=== PATIENT | female | born 1945 | race Caucasian/White ===

== ENCOUNTER 2016-09-07 08:20 | Inpatient (IN) | payer MEDICARE, MEDICAID ==
[~2016-09-07] VITALS: Ht 160 cm; Wt 64.4 kg
[2016-09-07] VITALS (7 sets, daily range): BP systolic 104–140; BP diastolic 47–88
[~2016-09-07 08:20] MED LIST: ALPRAZOLAM0.5 M3 PO; BUTRANS10 MCG/HR TD; CENTRUM SILVER1 EACH PO; GABAPENTIN 600600 MG PO; HYDROCODONE/IBU1 TAB PO; HYDROMORPHONE 2M2 MG PO; KEPPRA 500 MG500 MG PO; MAG-OX 400MG T400 MG PO; METHOCARBAMOL500 MG PO; MYCOSTATIN100000 U/G EX; NICOTINE PATCH;21 MG TD; NICOTINE T21 MG/24 H TD; OMEPRAZOLE20 MG PO; OXYCODONE HCL10 M1 PO; PHENERGAN 25MG.25 M1 PO; POTASSIUM CHLO10 ME3 PO; PRILOSEC20 M1 PO; PROAIR HFA0.09 MG/AC IH; PROBIOTIC FORM1 EACH PO; PROBIOTIC1 EAC5 PO; PROMETHAZINE HC25 M1 PO; VENTOLIN H0.09 MG/AC IH; XANAX 0.5MG TA0.5 MG PO; Xanax0.25 MG PO; ZOFRAN ODT4 MG PO; ZOFRAN4 MG PO; ZUPLENZ4 MG MM
--- NOTE | 2016-09-07 08:48 | Emergency Room Report ---
History of Present Illness Time Seen by MD Mcgrath Presenting Problem in Triage Pt arrived:Ambulance Stretcher Presenting Problem:REPORTS FEELING SICK TO HER STOMACH FOR SEVERAL DAYS. REPORTS WEAKNESS, VOMITING, NO FEVER. REPORTS SHE CANNOT URINATE. PT HAS COLOSTOMY RLQ. PT VERY PALE. 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 N Clinical Suspician of Infection? N Mental Status: 1 - Regular (Normal Baseline) Sepsis Risk:Low Sepsis Risk Have you (or family members/close friends) recently traveled outside the [place]? N If Yes, where/when: Have you had exposure to infectious disease within the past month? N TB? Other? Specify: Comment The patient complains of lower abdominal pain. She has chronic abdominal pain, but is currently worse. She is on a fentanyl patch and oxycodone 10 mg. She wonders whether her pain medication needs to be increased. She has also been vomiting. Her daughter states that she is currently in renal failure, she says that her kidney function on when she had outpatient labs was "6". She says that she has had decreased urine output in her urine is very strong, ammonia smelling. She is not a candidate for dialysis, feeding tube, or surgery. She has had multiple abdominal surgeries and has a colostomy. Her daughter states that she is going to soon be in hospice. ALLERGIES Coded Allergies: Penicillins (I-HIVES 08/06/16) SHELLFISH (FOOD) (I-ITCHING 08/06/16) iodine (I-HIVES 08/06/16) morphine (HEADACHE 08/06/16) Home Medications Reported Medications Nystatin (Mycostatin) 1 TISHA EX QID Omeprazole (Omeprazole 20MG) 20 MG PO BID POTASSIUM CHL (Potassium Chloride) 10 MEQ PO BID Gabapentin (Gabapentin 600MG) 600 MG PO BID Alprazolam 0.5 MG PO QHS #30 TAB Levetiracetam (Keppra 500 Mg Tablet) 750 MG PO BID MAGNESIUM OXIDE (Magnesium Oxide) 400 MG PO DAILY Multivit-Min/FA/Lycopene/Lut (Centrum Silver Tablet) 1 EACH PO DAILY Buprenorphine (Butrans) 10 MCG TD DAILY #4 OXYCODONE HCL (Oxycodone HCl) 10 MG PO PRN PRN PAIN #63 ONDANSETRON HCL (Zofran 4MG Tab) 8 MG PO DAILY Albuterol Sulfate (Proair Hfa) 1 PUFF IH Q4HP PRN BREATHING History Medical History General CAD? Yes Angina: No CA: No Hypertension? No Hyperlipidemia? No CHF? No DVT? No PE? No COPD? Yes Asthma? Yes Anemia? No GERD? Yes Gastric ulcers? No GI Bleed? No Hernia? No Thyroid Problems? No Hypothyroidism? No CVA? Yes Seizures? Yes Diabetes? No Renal Insuffiency? Yes End Stage Renal Disease? No UTI? Yes Stones? Yes BPH? No GB Disease: Yes Nephritic Syndrome? No Asplenia? No Hepatitis? No Sickle Cell Disease? No Arthritis? No Migraines? No Cataracts? No Glaucoma? No MRSA? No HIV? No TB? No Anxiety? No Depression? No Cancer? Yes Site: OVARIAN More? Yes Additional hx: DIVERTICULITIS Immunization Hx DT/Tetanus Unknown Flu 2812-8452 Pneumonia Received In Past Surgical Hx Previous Surgery?Y HYSTERECTOMY L SHOULDER NASAL SEPTUM BOWEL SURGERY BOWEL RESECTION COLOSTOMY PLACEMENT Cholecystectomy Appendectomy PORTACATH PLACED Family History Family Hx Diabetes Yes CAD Yes Hypertension Yes Hyperlipidemia No Cancer No TB No Social History Smoking Hx Smoker: Never Smoker Tobacco: No Packs/day < 1 Pack Alcohol Alcohol: No Additionial History Additional History September 04 labs reviewed. BUN was 6, creatinine was 1. Review of Systems All Other Systems Reviewed and Negative Constitutional denies fever, malaise, weakness Gastrointestinal see HPI, abdominal pain, vomiting Genitourinary see HPI. Musculoskeletal back pain (chronic), other (pain in the heels) Physical Exam Vital Signs Vital Signs Date Time Temp Pulse Resp B/P Pulse O2 O2 Flow FiO2 Ox Delivery Rate 09/07 1103 119 16 89/75 97 2 09/07 1026 118 16 71/44 98 2 09/07 1017 16 09/07 0959 128 16 75/58 96 2 09/07 0848 120 20 63/42 95 09/07 0821 98.7 96 16 117/47 91 2 General Appearance thin, pale, chronically ill-appearing Eye Exam - bilateral eye normal exam, bilateral eye PERRL, bilateral eye EOMI Ear, Nose, Throat hearing grossly normal, normal ENT inspection Neck normal inspection, non-tender, supple, full range of motion Respiratory Status Yes: trachea midline, chest symmetrical, non tender chest. No: respiratory distress. Lung Sounds bilateral: normal breath sounds, lungs clear. Cardiovascular normal exam, regular rate/rhythm, no peripheral edema, no gallop, no JVD, no murmur, no rub, normal peripheral pulses Peripheral Pulses Pulses normal Yes Gastrointestinal normal bowel sounds, soft, no organomegaly, tender lower abdomen. Mild guarding., RIGHT lower quadrant colostomy. Back normal inspection, no CVA tenderness, no vertebral tenderness Extremities no skin breakdown seen. 1-2+ pitting edema. 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 Yes [place] was queried for this patient? No Reason not queried - emergent pt cond=no time Results/Orders Laboratory Tests 09/07/16 1010: Urine Color YELLOW, Urine Appearance CLOUDY, Urine pH 7.5, Ur Specific [place] 1.025, Urine Protein 2+ H, Urine Ketones NEGATIVE, Urine Blood 2+ H, Urine Nitrate NEGATIVE, Urine Bilirubin 1+ H, Urine Urobilinogen 0.2, Ur Leukocyte Esterase 1+ H, Urine RBC TNTC, Urine WBC 10-20, Urine Bacteria 2+, Urine Glucose NEGATIVE 09/07/16 1004: Urine Color Cancelled, Urine Appearance Cancelled, Urine pH Cancelled, Ur Specific [place] Cancelled 09/07/16 0946: POC Glucose 104 09/07/16 0830: Magnesium 1.0 L 09/07/16 0830: Lactic Acid 6.6 H 09/07/16 0830: Sodium 138, Potassium 5.0, Chloride 108 H, Carbon Dioxide 14 L, BUN 9, Creatinine 2.1 H, Estimated Creat Clear 18 L, Estimated GFR (MDRD) 23 L, Glucose 49 *L, Calcium 7.5 L, Total Bilirubin 1.5 H, AST 51 H, ALT 21, Alkaline Phosphatase 123 H, Creatine Kinase 39, CK-MB (CK-2) Rel Index 1.3, CK and CKMB Interp < 0.5, Troponin I < 0.02, Total Protein 4.2 L, Albumin 0.9 L, Globulin 3.3 H, Albumin/Globulin Ratio 0.3 L, WBC 9.9, RBC 2.60 L, Hgb 9.2 L , Hct 29.4 L, MCV 114.7 H, RDW 19.0 H, Plt Count 232, MPV 11.2 H, Gran % 68.0, Gran # 6.7, Lymphocytes % 23.9, Monocytes % 7.5, Eosinophils % 0.3, Basophils % 0.3, Lymphocytes # 2.4, Monocytes # 0.7, Eosinophils # 0.0, Basophils # 0.0, PUBS MCHC 30.8 L, MCH 35.3 H Current Medication Orders Sig/Candy Start time Last Medication Dose Route Stop Time Status Admin Aztreonam 2 GM ONCE ONE 09/07 1100 DCr 09/07 Sodium Chloride 100 ML IV 09/07 1129 1100 Miscellaneous 1 EACH CONSULT PHARMACY 09/07 1100 AC Information * 09/07 2251 Sodium Chloride 1,000 ML .Q1H1M 09/07 1100 DC 09/07 IV 09/07 1200 1056 Sodium Chloride 100 ML .STK-MED ONE 09/07 1059 DC IV Aztreonam 0 .STK-MED ONE 09/07 1058 DC .ROUTE Sodium Chloride 1,000 ML .STK-MED ONE 09/07 1052 DC IV Sodium Chloride 1,000 ML .STK-MED ONE 09/07 1019 DC IV Sodium Chloride 1,000 ML .Q1H1M 09/07 1015 DC 09/07 IV 09/07 1115 1018 Dextrose 25 ML ONCE ONE 09/07 0915 DC 09/07 IVP 09/07 0916 0910 Dextrose 0 .STK-MED ONE 09/07 0908 DC .ROUTE Hydromorphone HCl 1 MG ONCE ONE 09/07 0900 DCr 09/07 IV 09/07 0901 1017 Ondansetron HCl 4 MG ONCE ONE 09/07 0900 DC 09/07 IV 09/07 0901 0857 Hydromorphone HCl 0 .STK-MED ONE 09/07 0853 DCr .ROUTE Ondansetron HCl 0 .STK-MED ONE 09/07 0853 DC .ROUTE Sodium Chloride 1,000 ML .STK-MED ONE 09/07 0846 DC IV Sodium Chloride 10 ML PRN PRN 09/07 0830 AC IV 09/08 0826 Sodium Chloride 1,000 ML .Q1H1M 09/07 0830 DC 09/07 IV 09/07 0930 0857 Sodium Chloride 10 ML PRN PRN 09/07 0830 AC IV 09/08 08 Orders Procedure Date/time Status Decision to admit 09/07 1113 Active CULTURE, URINE 09/07 1010 Active FINGERSTICK BLOOD SUGAR 09/07 0946 Complete URINALYSIS/COMPLETE 09/07 0936 Complete LACTIC ACID FOLLOW UP 09/07 09 Complete 12 LEAD EKG-DEJA (INITIAL) 09/07 0850 Active ELECTROCARDIOGRAM REQUEST 09/07 0850 Active MAGNESIUM 09/07 0849 Complete IV SALINE LOCK 09/07 08 Active CULTURE, BLOOD 09/07 08 Active LACTIC ACID 09/07 08 Complete CBC WITH AUTO DIFF 09/07 826 Complete CARDIAC ENZYMES 09/07 826 Complete CHEM 12 PROFILE 09/07 826 Complete CM/EKG CM/EKG Comments EKG interpreted by Dennis Cintron MD: Rhythm: sinus tachycardia Rate: 113 [place]: normal Ectopy: none Conduction: normal ST Segment Changes: none T Wave Changes: none Q Waves: none No evidence of acute ischemia or injury Low voltage QRS Baseline artifact present, but I consider the EKG adequate for accurate interpretation. No change from prior except QRS voltage is lower, previously had low QRS voltage , but not as prominent XRAY/CT/US XRAY/CT/US XRAY chest Comment X-ray interpreted by radiologist: Blunting of LEFT costophrenic angle, otherwise unremarkable Departure Departure Disposition Still a Patient Clinical Impression Primary Impression: Severe sepsis Secondary Impressions: Abdominal pain Qualifiers: Abdominal location: lower abdomen, unspecified Qualified Code: R10.30 - Lower abdominal pain, unspecified Acute renal failure Qualifiers: Acute renal failure type: unspecified Qualified Code: N17.9 - Acute kidney failure, unspecified Urinary tract infection Qualifiers: Urinary tract infection type: site unspecified Hematuria presence: without hematuria Qualified Code: N39.0 - Urinary tract infection, site not specified Condition STABLE Referrals [place],Kumar Lanza (PCP/Family) ED Critical Care Critical Care Yes Time spent 30-74 min Vital system(s) involved: Circulatory Failure, Renal Failure I was present at bedside for Coordinating pt's care, Interpreting EKGs/Strips , During my initial exam, Reviewing lab results, Reviewing old records, Discussing pt condition, For re-examinations at 1614
[2016-09-07 08:56] LABS: LYMPH # 2.4 K/mm3 (0.7-4.5); LYMPH % 23.9 % (10-50.0)
[2016-09-07 09:03] LABS: HEMOGLOBIN 9.2 g/dL (12.2-16.2)
[2016-09-07 09:22] LABS: BUN 9 mg/dL (7-18); GFR (ESTIMATED) 23 ML/MIN (59-)
[2016-09-07 10:23] LABS: URINE BLOOD 2+ (NEG)
[2016-09-07 10:25] LABS: URINE BILIRUBIN - DIPSTICK 1+ (NEG)
--- NOTE | 2016-09-07 10:27 | RADIOLOGY REPORT PS360 ---
CHEST-PORTABLE COMPARISON: Portable upright chest 07/29/2016 HISTORY: Follow-up suspected minimal pneumonia TECHNIQUE: Oral upright chest FINDINGS: The Port-A-Cath is again noted entering the left subclavian vein with the tip in the SVC above the right atrium. There is blunting of left costophrenic angle probably due to post left or scarring although a small amount of pleural fluid cannot be excluded. The lung ambriz are well expanded and appear clear of infiltrate. Cardiac size is normal and the vascularity is normal. There is no pneumothorax. IMPRESSION: Blunting left costo phrenic angle, otherwise no definite acute chest pathology noted
--- NOTE | 2016-09-07 14:07 | CONSULT NOTE ---
Pharmacokinetic Consult Date of consult: 09/07/16 Time of consult: 1230 Referring provider: JANET Reason for consult: VANCOMYCIN DOSING Allergies: Coded Allergies: Penicillins (I-HIVES 08/06/16) SHELLFISH (FOOD) (I-ITCHING 08/06/16) iodine (I-HIVES 08/06/16) morphine (HEADACHE 08/06/16) Home Medications: Reported Medications Nystatin (Mycostatin) 1 TISHA EX QID Omeprazole (Omeprazole 20MG) 20 MG PO BID POTASSIUM CHL (Potassium Chloride) 10 MEQ PO BID Gabapentin (Gabapentin 600MG) 600 MG PO BID Alprazolam 0.5 MG PO QHS #30 TAB Levetiracetam (Keppra 500 Mg Tablet) 750 MG PO BID MAGNESIUM OXIDE (Magnesium Oxide) 400 MG PO DAILY Multivit-Min/FA/Lycopene/Lut (Centrum Silver Tablet) 1 EACH PO DAILY Buprenorphine (Butrans) 10 MCG TD DAILY #4 OXYCODONE HCL (Oxycodone HCl) 10 MG PO PRN PRN PAIN #63 ONDANSETRON HCL (Zofran 4MG Tab) 8 MG PO DAILY Albuterol Sulfate (Proair Hfa) 1 PUFF IH Q4HP PRN BREATHING Height (feet): 5 Height (inches): 3.00 Medical History: CAD? Yes Angina: No [place]: No Hypertension? No Hyperlipidemia? No CHF? No DVT? No PE? No COPD? Yes Asthma? Yes Anemia? No GERD? Yes Gastric ulcers? No GI Bleed? No Hernia? No Thyroid Problems? No Hypothyroidism? No CVA? Yes Seizures? Yes Diabetes? No Renal Insuffiency? Yes UTI? Yes Stones? Yes BPH? No GB Disease: Yes Nephritic Syndrome? No Asplenia? No Hepatitis? No Sickle Cell Disease? No Arthritis? No Migraines? No Cataracts? No Glaucoma? No MRSA? No HIV? No TB? No Anxiety? No Depression? No Cancer? Yes Site: OVARIAN More? Yes Additional hx: DIVERTICULITIS Labs: Laboratory Tests 09/07/16 1245: Lactic Acid 6.8 H 09/07/16 1010: Urine Color YELLOW, Urine Appearance CLOUDY, Urine pH 7.5, Ur Specific [place] 1.025, Urine Protein 2+ H, Urine Ketones NEGATIVE, Urine Blood 2+ H, Urine Nitrate NEGATIVE, Urine Bilirubin 1+ H, Urine Urobilinogen 0.2, Ur Leukocyte Esterase 1+ H, Urine RBC TNTC, Urine WBC 10-20, Urine Bacteria 2+, Urine Glucose NEGATIVE 09/07/16 0946: POC Glucose 104 09/07/16 0830: Magnesium 1.0 L 09/07/16 0830: Lactic Acid 6.6 H 09/07/16 0830: Sodium 138, Potassium 5.0, Chloride 108 H, Carbon Dioxide 14 L, BUN 9, Creatinine 2.1 H, Estimated Creat Clear 18 L, Estimated GFR (MDRD) 23 L, Glucose 49 *L, Calcium 7.5 L, Total Bilirubin 1.5 H, AST 51 H, ALT 21, Alkaline Phosphatase 123 H, Creatine Kinase 39, CK-MB (CK-2) Rel Index 1.3, CK and CKMB Interp < 0.5, Troponin I < 0.02, Total Protein 4.2 L, Albumin 0.9 L, Globulin 3.3 H, Albumin/Globulin Ratio 0.3 L, WBC 9.9, RBC 2.60 L, Hgb 9.2 L , Hct 29.4 L, MCV 114.7 H, RDW 19.0 H, Plt Count 232, MPV 11.2 H, Gran % 68.0, Gran # 6.7, Lymphocytes % 23.9, Monocytes % 7.5, Eosinophils % 0.3, Basophils % 0.3, Lymphocytes # 2.4, Monocytes # 0.7, Eosinophils # 0.0, Basophils # 0.0, PUBS MCHC 30.8 L, MCH 35.3 H Microbiology 09/07 1010 URINE CATH: Urine Culture - RECD 09/07 829 BLOOD: Anaerobic Blood Culture - RECD 09/07 829 BLOOD: Aerobic Blood Culture - RECD 09/07 829 BLOOD: Anaerobic Blood Culture - RECD 09/07 829 BLOOD: Aerobic Blood Culture - RECD Plan: BASED ON PT FACTORS, RECOMMEND VANCOMYCIN 750MG (~ 17 MG/KG) IV Q 48 HOURS. PHARMACY WILL FOLLOW DAILY AND ADJUST NEEDED. at 1406
[2016-09-07 20:45] LABS: URINE BLOOD NEGATIVE (NEG)
[2016-09-07 20:48] LABS: URINE BILIRUBIN - DIPSTICK NEGATIVE (NEG)
[2016-09-08 02:51] LABS: ARTERIAL PO2 48.9 MMHG (80-100)
[2016-09-08 02:52] LABS: OXYGEN 100
[2016-09-08 02:59] LABS: LYMPH % 48.6 % (10-50.0)
[2016-09-08 03:03] LABS: HEMOGLOBIN 6.4 g/dL (12.2-16.2)
[2016-09-08 03:32] VITALS: BP 77/54
[2016-09-08 03:47] VITALS: BP 93/47
--- NOTE | 2016-09-08 04:13 | Procedure Note ---
See Addendum Bedside procedures Intubation Date of procedure: 09/08/16 Time of procedure: 219 Intubation: Risks/benefits discussed with pt/guardian? No Time of Intubation 022 Intubation Method orotracheal (w/ Glidescope) Tube Size (cm) 6.5 Medications Other (none) Breath Sounds after Intubation: equal Intubation Complications no complications Post Intubation Xray Yes Additional information: Emergency room physician note/CODE BLUE summary. I responded to a CODE BLUE which was called around 2:17 AM, in room 203. Upon my arrival, the patient was apneic, unresponsive, pulseless, pale, with upper body covered in black tarry vomitus. Cardiopulmonary resuscitation was in progress, with patient in pulseless electrical activity. She has already received her first dose of epinephrine by IV route, and cardiopulmonary resuscitation was in progress. Both pupils are dilated and fixed, nonreactive to light. I intubated the patient with a 6.5 endotracheal tube, visualized both vocal cords, was able to pass the ET tube in between the vocal cords, post intubation CO2 detector turned yellow, with tube fogging, and raise in her O2 sats. Bilateral chest auscultation revealed equal breath sounds in both lung ambriz. Postintubation chest x-ray showed the ET tube above betsy . CODE BLUE was continued for PEA protocol. IV fluids or also started/bolus. I ordered a fingerstick blood sugar which was 86. Within a few minutes after intubation, the patient regained her pulse. Her first blood pressure was 116/76, however the patient remained unresponsive. Oral cavity was suctioned throughout this process revealing copious amounts of bloody fluid. An nasogastric tube was placed by myself. By the time I LEFT the room the patient rapidly accumulated 1500ml of black tarry fluid, most likely blood. I was advised that the patient was just found unresponsive. She was admitted yesterday morning from the emergency room with generalized weakness, and she was diagnosed with hypoglycemia, as well as severe sepsis. Nurse stated that she has called and discussed with Dr. Niño regarding patient's case about 5 times tonight. I have obtained blood from a RIGHT femoral arteries stick, including an ABG as well. Results of blood just obtained revealed patient to be severe metabolic acidosis, also severely anemic. I had a lengthy discussion with family, advised him of dire prognosis, and terminal condition, especially the fact the patient's pupils are fixed, dilated and unresponsive to light. Case also discussed with Dr. Pool Niño at 3:08 AM, advised him of the same, including imminent and grave prognosis. I have asked Dr. Niño to assist with patient's transfer to a tertiary facility. Dr. Nevarez has requested of me to initiate such process, instead. Case discussed with [facility] transfer center at 3:09 AM, [phone], advised of patient's condition, and imminent need for transfer. The floor worker transfer bay advised that she will get an your physician underlying RIGHT away. In the meanwhile I had an extensive conversation with family members, who initially requested "patient to be transferred to another facility and everything to be done in order to keep patient alive". I initially offered transferred to [facility] which they all refused, apparently due to "previous bad experiences". At 3:17 AM [facility] transfer center coordinator called back, with physician line, ready to accept transfer. With family members in front of me, aware of imminent transfer, they have reconsidered their previous decision, advising me now that they simply want to keep patient here, at this facility, while doing everything possible. As a result I have advised [facility] transfer [place] that transfer is now canceled. Upon further discussion with family it stress prior to that family's wishes are for patient to remain at this facility, they are agreeable with patient to remain intubated at this time, received blood products, IV medications, and reevaluate her in a few hours, to see her response to such treatment. During the code the patient has received IV Narcan, IV Romazicon, D50 1 amp IV push, for bags of sodium bicarbonate, IV crystalloid solution. Lengthy discussion with family members, especially her to oldest sons reveal that they want patient to be no code, at this time. If patient loses her pressure, her pulse, or she stops breathing, they want no further aggressive interventions, and simply allow her to pass away. I LEFT the patient's room around 3:40 AM, returning care of such patient to Dr. Pool Niño. I advised the nurse, as well as the nurse supervisor taping, to call Dr. Nevarez with any further questions and any further abnormal labs. Prior to her departure I have asked Rosey, patient's nurse, to call Dr. Nevarez with updates regarding the most recent developments in patient's case. at 0492
--- NOTE | 2016-09-08 04:13 | Procedure Note ---
See Addendum Bedside procedures Intubation Date of procedure: 09/08/16 Time of procedure: 219 Intubation: Risks/benefits discussed with pt/guardian? No Time of Intubation 022 Intubation Method orotracheal (w/ Glidescope) Tube Size (cm) 6.5 Medications Other (none) Breath Sounds after Intubation: equal Intubation Complications no complications Post Intubation Xray Yes Additional information: Emergency room physician note/CODE BLUE summary. I responded to a CODE BLUE which was called around 2:17 AM, in room 203. Upon my arrival, the patient was apneic, unresponsive, pulseless, pale, with upper body covered in black tarry vomitus. Cardiopulmonary resuscitation was in progress, with patient in pulseless electrical activity. She has already received her first dose of epinephrine by IV route, and cardiopulmonary resuscitation was in progress. Both pupils are dilated and fixed, nonreactive to light. I intubated the patient with a 6.5 endotracheal tube, visualized both vocal cords, was able to pass the ET tube in between the vocal cords, post intubation CO2 detector turned yellow, with tube fogging, and raise in her O2 sats. Bilateral chest auscultation revealed equal breath sounds in both lung ambriz. Postintubation chest x-ray showed the ET tube above betsy . CODE BLUE was continued for PEA protocol. IV fluids or also started/bolus. I ordered a fingerstick blood sugar which was 86. Within a few minutes after intubation, the patient regained her pulse. Her first blood pressure was 116/76, however the patient remained unresponsive. Oral cavity was suctioned throughout this process revealing copious amounts of bloody fluid. An nasogastric tube was placed by myself. By the time I LEFT the room the patient rapidly accumulated 1500ml of black tarry fluid, most likely blood. I was advised that the patient was just found unresponsive. She was admitted yesterday morning from the emergency room with generalized weakness, and she was diagnosed with hypoglycemia, as well as severe sepsis. Nurse stated that she has called and discussed with Dr. Niño regarding patient's case about 5 times tonight. I have obtained blood from a RIGHT femoral arteries stick, including an ABG as well. Results of blood just obtained revealed patient to be severe metabolic acidosis, also severely anemic. I had a lengthy discussion with family, advised him of dire prognosis, and terminal condition, especially the fact the patient's pupils are fixed, dilated and unresponsive to light. Case also discussed with Dr. Pool Niño at 3:08 AM, advised him of the same, including imminent and grave prognosis. I have asked Dr. Niño to assist with patient's transfer to a tertiary facility. Dr. Nevarez has requested of me to initiate such process, instead. Case discussed with [facility] transfer center at 3:09 AM, [phone], advised of patient's condition, and imminent need for transfer. The substance abuse prevention coordinator advised that she will get an your physician underlying RIGHT away. In the meanwhile I had an extensive conversation with family members, who initially requested "patient to be transferred to another facility and everything to be done in order to keep patient alive". I initially offered transferred to [facility] which they all refused, apparently due to "previous bad experiences". At 3:17 AM [facility] transfer center coordinator called back, with physician line, ready to accept transfer. With family members in front of me, aware of imminent transfer, they have reconsidered their previous decision, advising me now that they simply want to keep patient here, at this facility, while doing everything possible. As a result I have advised [facility] transfer [place] that transfer is now canceled. Upon further discussion with family it stress prior to that family's wishes are for patient to remain at this facility, they are agreeable with patient to remain intubated at this time, received blood products, IV medications, and reevaluate her in a few hours, to see her response to such treatment. During the code the patient has received IV Narcan, IV Romazicon, D50 1 amp IV push, for bags of sodium bicarbonate, IV crystalloid solution. Lengthy discussion with family members, especially her to oldest sons reveal that they want patient to be no code, at this time. If patient loses her pressure, her pulse, or she stops breathing, they want no further aggressive interventions, and simply allow her to pass away. I LEFT the patient's room around 3:40 AM, returning care of such patient to Dr. Pool Niño. I advised the nurse, as well as the nurse supervisor feed house, to call Dr. Nevarez with any further questions and any further abnormal labs. Prior to her departure I have asked Rosey, patient's nurse, to call Dr. Nevarez with updates regarding the most recent developments in patient's case. at [phone]
--- NOTE | 2016-09-08 04:34 | HISTORY AND PHYSICAL REPORT ---
Demographics: Admit date: 09/07/16 Chief complaint: feels ill PRIMARY DIAGNOSIS: SEVERE SEPSIS Allergies: Coded Allergies: Penicillins (I-HIVES 08/06/16) SHELLFISH (FOOD) (I-ITCHING 08/06/16) iodine (I-HIVES 08/06/16) morphine (HEADACHE 08/06/16) History of present illness: History of present illness: this wf who has had multiple abd surg and now has a version of short bowel syndrome where she requires iv fluids 1-2 /week in order to maintain and has been getting them as home health - her baseline is chronic abd pain and nausea and dec po intake - she has been told by surg that she can not have a g tube - she has consisdered hospice - she presents to ed feeling ill with dec po intake and abd pain - she was eval and had thoutht to have uti and excerbation of her chronic issues and was admitted for ivf and abx Past medical history: Family HX Family Hx Insignificant Yes Immunization HX DT/Tetanus Unknown Flu [id number] Pneumonia Received In Past TB Test in last year No General CAD? Yes Angina: No VT: No Hypertension? No Hyperlipidemia? No CHF? No DVT? No PE? No COPD? Yes Asthma? Yes Anemia? No GERD? Yes Gastric ulcers? No GI Bleed? No Hernia? No Thyroid Problems? No Hypothyroidism? No CVA? Yes Seizures? Yes Diabetes? No Renal Insuffiency? Yes UTI? Yes Stones? Yes BPH? No GB Disease: Yes Nephritic Syndrome? No Asplenia? No Hepatitis? No Sickle Cell Disease? No Arthritis? No Migraines? No Cataracts? No Glaucoma? No MRSA? No HIV? No TB? No Anxiety? No Depression? No Cancer? Yes Site: OVARIAN More? Yes Additional hx: DIVERTICULITIS Past Surgical HX Previous Surgery?Y HYSTERECTOMY L SHOULDER NASAL SEPTUM BOWEL SURGERY BOWEL RESECTION COLOSTOMY PLACEMENT Cholecystectomy Appendectomy PORTACATH PLACED Current home meds: Reported Medications Nystatin (Mycostatin) 1 TISHA EX QID Omeprazole (Omeprazole 20MG) 20 MG PO BID POTASSIUM CHL (Potassium Chloride) 10 MEQ PO BID Gabapentin (Gabapentin 600MG) 600 MG PO BID Alprazolam 0.5 MG PO QHS #30 TAB Levetiracetam (Keppra 500 Mg Tablet) 750 MG PO BID MAGNESIUM OXIDE (Magnesium Oxide) 400 MG PO DAILY Multivit-Min/FA/Lycopene/Lut (Centrum Silver Tablet) 1 EACH PO DAILY Buprenorphine (Butrans) 10 MCG TD DAILY #4 OXYCODONE HCL (Oxycodone HCl) 10 MG PO PRN PRN PAIN #63 ONDANSETRON HCL (Zofran 4MG Tab) 8 MG PO DAILY Albuterol Sulfate (Proair Hfa) 1 PUFF IH Q4HP PRN BREATHING Social Hx: Smoking HX Tobacco No Packs/day < 1 PACK Are you/the child exposed to second-hand smoke: No Alcohol Alcohol: No Hx of Drug Use Drug Use? No Patien't marital status is Patient's support system is excellent Review of systems: Constitutional see HPI, weakness. No: fever. Eyes No: drainage. Ears, Nose, Mouth, Throat No ear pain, No epistaxis, No throat pain Respiratory No: cough, shortness of breath. Cardiovascular No chest pain, No palpitations, No syncope Gastrointestinal/Abdominal see HPI, abdominal pain, No diarrhea, nausea, poor appetite, poor fluid intake, vomiting Genitourinary No: dysuria, frequency, hesitancy, hematuria. Musculoskeletal No: joint pain, joint swelling. Skin No: rash. Neurological No: headache, seizure disorder. Psychiatric No: depressed. Exam: Lab data for last 24 hours: Laboratory Tests 09/08/16 0315: [facility] Test Units BLOOD UNIT RELEASE 09/08/16 031: Mis Test Units BLOOD UNIT RELEASE 09/08/16 0249: ABG pH 6.63 *L, ABG pCO2 (Temp Corrct 59.5 H, ABG pO2 (Temp Correct 48.9 *L, ABG HCO3 6.2 L, ABG Total CO2 8.0 L, ABG O2 Sat (Calculated) 57.4 *L, ABG Base Excess 31.0 H, Blood Gas Comments L/F 09/08/16244: Creatine Kinase 196 H, CK-MB (CK-2) Rel Index 1.7, CK and CKMB Interp 3.4, Troponin I 0.02 09/08/16244: Sodium 139, Potassium 5.6 H, Chloride 113 H, Carbon Dioxide 10 *L, BUN 9, Creatinine 2.2 H, Estimated Creat Clear 25 L, Estimated GFR (MDRD) 22 L, Glucose 307 H, Calcium 6.8 L, Total Bilirubin 0.6, AST 91 H, ALT 22, Alkaline Phosphatase 146 H, Total Protein 2.7 L, Albumin 0.5 L, Globulin 2.2, Albumin/ Globulin Ratio 0.2 L, WBC 8.2, RBC 1.79 L, Hgb 6.4 *L, Hct 23.8 *L, MCV 133.4 H, RDW 17.1, Plt Count 163, MPV 11.6 H, Gran % 46.4, Gran # 3.8, Lymphocytes % 48.6, Monocytes % 3.7, Eosinophils % 0.7, Basophils % 0.6, Lymphocytes # 4.0, Monocytes # 0.3, Eosinophils # 0.1, Basophils # 0.1, PUBS MCHC 26.7 L, MCH 35.6 H 09/07/165: Sodium 141, Potassium 4.1, Chloride 113 H, Carbon Dioxide 12 L, BUN 9, Creatinine 2.1 H, Estimated Creat Clear 26 L, Estimated GFR (MDRD) 23 L, Glucose 100, Calcium 6.8 L, Total Bilirubin 1.1 H, AST 45 H, ALT 21, Alkaline Phosphatase 121 H, Total Protein 3.8 L, Albumin 0.8 L, Globulin 3.0, Albumin/ Globulin Ratio 0.3 L, Amylase 10 L, Lipase 18 L 09/07/16 1940: Urine Color TAMERA, Urine Appearance CLEAR, Urine pH 5.5, Ur Specific [place] 1.020, Urine Protein TRACE H, Urine Ketones NEGATIVE, Urine Blood NEGATIVE, Urine Nitrate POSITIVE H, Urine Bilirubin NEGATIVE, Urine Urobilinogen 1.0, Ur Leukocyte Esterase NEGATIVE, Urine WBC 3-5, Amorphous Sediment TRACE, Hyaline Casts 20-50, Urine Mucus 1+, Urine Glucose NEGATIVE 09/07/16 1935: Glucose 21 *L 09/07/16 1245: Lactic Acid 6.8 H 09/07/16 1010: Urine Color YELLOW, Urine Appearance CLOUDY, Urine pH 7.5, Ur Specific [place] 1.025, Urine Protein 2+ H, Urine Ketones NEGATIVE, Urine Blood 2+ H, Urine Nitrate NEGATIVE, Urine Bilirubin 1+ H, Urine Urobilinogen 0.2, Ur Leukocyte Esterase 1+ H, Urine RBC TNTC, Urine WBC 10-20, Urine Bacteria 2+, Urine Glucose NEGATIVE 09/07/16 0946: POC Glucose 104 09/07/16 0830: Magnesium 1.0 L 09/07/16 08: Lactic Acid 6.6 H 09/07/16 0830: Sodium 138, Potassium 5.0, Chloride 108 H, Carbon Dioxide 14 L, BUN 9, Creatinine 2.1 H, Estimated Creat Clear 18 L, Estimated GFR (MDRD) 23 L, Glucose 49 *L, Calcium 7.5 L, Total Bilirubin 1.5 H, AST 51 H, ALT 21, Alkaline Phosphatase 123 H, Creatine Kinase 39, CK-MB (CK-2) Rel Index 1.3, CK and CKMB Interp < 0.5, Troponin I < 0.02, Total Protein 4.2 L, Albumin 0.9 L, Globulin 3.3 H, Albumin/Globulin Ratio 0.3 L, WBC 9.9, RBC 2.60 L, Hgb 9.2 L , Hct 29.4 L, MCV 114.7 H, RDW 19.0 H, Plt Count 232, MPV 11.2 H, Gran % 68.0, Gran # 6.7, Lymphocytes % 23.9, Monocytes % 7.5, Eosinophils % 0.3, Basophils % 0.3, Lymphocytes # 2.4, Monocytes # 0.7, Eosinophils # 0.0, Basophils # 0.0, PUBS MCHC 30.8 L, MCH 35.3 H Microbiology 09/07 1010 URINE CATH: Urine Culture - RECD 09/07 829 BLOOD: Anaerobic Blood Culture - RECD 09/07 829 BLOOD: Aerobic Blood Culture - RECD 09/07 829 BLOOD: Anaerobic Blood Culture - RECD 09/07 829 BLOOD: Aerobic Blood Culture - RECD Admission vital signs: 1ST Vital Signs Result Date Time Pulse Ox 91 09/07 820 B/P 117/47 09/07 820 O2 Flow Rate 2 09/07 820 Temp 98.7 09/07 820 Pulse 96 09/07 820 Resp 16 09/07 820 O2 Delivery OXYGEN 09/07 1232 Exam General appearance: intubated recieving blood Eyes: non reactive pupils ENT: intubated Neck: no JVD Cardiovascular: regular rate & rhythm Respiratory: occ agonal resp requiring bagging ABD: soft Genitourinary: catheter in place Extremities: edema Musculoskeletal: flaccid Skin: pale Neuro: obtunded but no focal changes or posturing Additional information: pt had did ok till this evening with abd pain increased and had ct which showed possible obst and her labs reflected met acidodis and her vss were stable with ivf and she recieved some pain and sedative meds for comfort and then had episode of ugi bleed and became unresponsive requiring intubation by ed md- she was given emegrncy tranfusion but remained critical and family decided to not transfer and select comfort measures only Plan: Problem List 1. Chronic abdominal pain 2. Urinary tract infection 3. Severe sepsis 4. Renal insufficiency 5. UGIB (upper gastrointestinal bleed) Plan: will provide comfort measures at this time at [id number]
[2016-09-08 04:39] LABS: ABO BLOOD TYPE O
[2016-09-08 04:40] LABS: ANTIHUMAN GLOB CROSSMATCH COMPAT; RH BLOOD TYPE POSITIVE
--- NOTE | 2016-09-08 07:10 | PHARMACY CLINIC NOTE ---
Patient Demographics Patient Demographics Admission date: 09/07/16 Date: 09/08/16 Time: 0709 Allergies Coded Allergies: Penicillins (I-HIVES 08/06/16) SHELLFISH (FOOD) (I-ITCHING 08/06/16) iodine (I-HIVES 08/06/16) morphine (HEADACHE 08/06/16) HEIGHT- FT: 5 IN: 3.00 K.410 VTE General Information Labs: Laboratory Tests 09/08 09/07 0245 0830 Hematology Hgb (12.2 - 16.2 g/dL) 6.4 *L 9.2 L Hct (37.0 - 47.0 %) 23.8 *L 29.4 L Plt Count (142 - 424 K/mm3) 163 232 Disclaimer The following section includes nursing documentation that has been pulled in for pharmacy review. Patient's VTE score: 4 Patient's VTE Risk: LOW RISK Clinical trial participant? No VTE prophylaxis NQF [id number] VTE prophylaxis ordered? Yes Type of prophylaxis/treatment: CASSANDRA at 0710
--- NOTE | 2016-09-08 08:48 | RADIOLOGY REPORT PS360 ---
CHEST-PORTABLE ORDERING PHYSICIAN : Kumar Niño MD PATIENT AGE: 71 years GENDER: Female INDICATION: CODE fluid of breath. Bowel obstruction. ET tube placement TECHNIQUE: AP chest 2 images submitted COMPARISON: September 07, 2016 at 9:18 AM PCXR.. As well as previous July 29, [address] abdomen which included the lung bases FINDINGS NG tube is in place and passes beneath through the GE junction and continues just beneath diaphragm looping in the large distended stomach. We do not see tip of NG tube but it is inferiorly position, satisfactory position. ET tube in place with tip at the level of the head of the clavicles 5.5 cm proximal to the betsy.. Adequate position follow-up studies should observe for a proximal migration. Central line entering from the left. This Port-A-Cath has been present on multiple chest films including those dating back to May 2016 and appears unchanged. Lungs with marked interval change since yesterday, bilateral infiltrates and airspace disease right greater than left.. No pneumothorax Right lung: Infiltrate is most evident towards the right lower lobe and extends the right midlung field. Right apex remains clear. Left lung.: Minimal perihilar infiltrate. Only scant airspace disease towards LLL which partially obscures left hemidiaphragm. Yesterday evening CT did show bilateral pleural effusions which likely add to the density at the lung bases Follow-up will be important. Noting the prominent gastric distention on last night's CT abdomen question aspiration pneumonia. There is some mild vascular congestion but heart is normal as are upper lobe vessels less doubt CHF component AED pad overlying mid chest on the initial PCXR image was then the removed for a second PCXR image ------IMPRESSION: 1. ET TUBE, & NG tube satisfactory position as detailed in text. Power Port-A-Cath Central line entering from left subclavian again noted.. Remains in place unchanged 2. Bilateral infiltrates developed since yesterday . Infiltrate most most evident RIGHT lung base and extending to right midlung. . .Minimal infiltrate LEFT perihilar region and towards left base. 3. Small left pleural effusion..
--- NOTE | 2016-09-09 11:34 | RADIOLOGY REPORT PS360 ---
CT ABD PELVIS W/O CONTRAST ORDERING PHYSICIAN : Kumar Niño MD PATIENT AGE: 71 years GENDER: Female INDICATION: PAIN Abdominal pain. Cramping. Vomiting. Low-grade temperature. TECHNIQUE: Helical CT scanning with no oral or IV contrast COMPARISON: Prior CT abdomen 05/16/2016 Redictation. The initial dictation lost in the system. LOWER THORAX. Small bilateral pleural effusions. Bibasilar airspace disease mainly atelectasis, left base greater than right. Cannot exclude early infiltrate left base. Heart with small pericardial effusion. Fluid-filled esophagus reflecting reflux ABDOMEN. Prominent streak artifact from the patient's arm and heart monitor device that remains in the scan field producing artifact . . Liver.: Prominent hepatic steatosis. There is a 17 mm x 14 mm ovoid slightly hyperdense area at left lobe. On previous October 2014 study there is a cystic area seen in this region.. On the more recent May 2016 at which is slightly above fluid density. I would recommend ultrasound to further evaluate or follow-up CT preferably with contrast at some point. Gallbladder. Surgically removed Pancreas:. Unremarkable Spleen: unremarkable Adrenals: unremarkable Kidneys. No urinary tract obstruction. More evident stranding about both kidneys seen today reflecting the diffuse trace free fluid seen throughout abdomen and pelvis Right kidney. 2 tiny punctate obstructive calculus upper pole again noted. GI tract Left kidney.. Benign renal cyst 3 cm diameter appears X a slightly smaller ureters unremarkable. GI TRACT.: Esophagus. Fluid-filled reflecting GE reflux Stomach. Prominent distended fluid-filled stomach. Thickened appearing stomach particularly at distal antrum fluid-filled dilated and thickened duodenal loop. Small bowel. Dilated small bowel loops with scattered air-fluid levels. Small bowel obstruction which I believe occurs at the ostomy site. Question some mild wall thickening of proximal small bowel. Right lower quadrant ostomy. There is some herniation of fat but to this ostomy. Prominent Dilatation of the small bowel proximal to the ostomy reflecting small bowel obstruction. There is wall thickening of the right colon at and leading to the ostomy reflecting likely enteritis/colitis. Most likely infectious but cannot exclude ischemic colitis ... Postsurgical changes proximal transverse colon just medial to the ostomy with empty transverse and left colon distal to the ostomy. .. Anastomosis is seen at the rectum. Minimal contrast at rectum and empty left colon. Pelvis. Calcified mass along left pelvic sidewall again noted 5.1 cm x 3.2 cm. No significant change Aiken catheter in place. No adnexal masses. . There is diffuse edema in the subcutaneous soft tissues today free fluid intraperitoneal most evident towards right lower quadrant. Particularly note minimal fluid stranding about the descending duodenum &.. Inferior to the liver.... Warrants correlation Osseous. There are degenerative changes in the spine similar to previous study. No new findings here. .. IMPRESSION...................... 1. Right lower quadrant ostomy. Bowel wall thickening of the right colon leading to & at ostomy suggesting Enteritis/Colitis Right Colon. 2. Small Bowel Obstruction. Prominent dilatation small bowel-similar to but slightly more pronounced than on previous exam Suspect portable obstruction towards right lower quadrant 3. A minimal free fluid abdomen/ascites has developed since prior study..-most evident the right abdomen. Could not exclude secondary to inflammatory changes right abdomen. 4. Diffuse subcutaneous vance has developed - These latter features may in part reflect diffuse edematous state/hyperproteinemia 5. Prominent distention fluid-filled stomach prominent distended proximal duodenum loop.. Suggestion of wall thickening stomach, distal antrum. Distended fluid-filled duodenum with mild wall thickening. Nonspecific but Above features could reflect enteritis/gastroenteritis 6. Prominent hepatic steatosis. Marked progressive fatty changes liver since previous studies. Previous cystic area now appears slightly hyperdense left lobe. If patient stabilizes can be further addressed on follow-up study
== END 2016-09-08 05:45 | disposition expired | DRG 872 ==
LOC: ER 08:20 → 2ND 11:23
PROVIDERS: Emergency Medicine
PROC: 0BH17EZ Insertion of Endotracheal Airway into Trachea, Via Natural or Artificial Opening (ICD-10-PCS; principal; 2016-09-07)
DX: A41.9 Sepsis, unspecified organism (principal); E87.2 Acidosis; K92.2 Gastrointestinal hemorrhage, unspecified; K91.2 Postsurgical malabsorption, not elsewhere classified; J44.9 Chronic obstructive pulmonary disease, unspecified; N39.0 Urinary tract infection, site not specified; R65.20 Severe sepsis without septic shock; Z93.3 Colostomy status
CPT/HCPCS: J2405; P9016